=== PATIENT | male | born 1990 | race Caucasian/White ===

== ENCOUNTER 2018-12-22 23:55 | Emergency (ER) | payer OTHER ==
[~2018-12-22] VITALS: Ht 180.3 cm; Wt 65.3 kg
[2018-12-22 23:58] VITALS: BP 125/87
[2018-12-23 00:30] LABS: ABSOLUTE BASOPHILS 0.1 thou/uL (0.0-0.2); ABSOLUTE EOSINOPHILS 0.3 thou/uL (0.0-0.7); ABSOLUTE LYMPHOCYTES 3.2 thou/uL (0.8-5.3); ABSOLUTE MONOCYTES 0.5 thou/uL (0.0-1.2); BASOPHILS 0.8 %; EOSINOPHILS 3.5 %; HEMATOCRIT 48.7 % (42.0-52.0); HEMOGLOBIN 16.6 gm/dL (14.0-18.0); MCH 32.1 pg (26.0-34.0); MCV 94.2 fL (80.0-100.0); MONOCYTES 5.7 %; MPV 8.2 fl. (7.2-11.1); NUCLEATED RBCS 0 /100WBC; PLATELET COUNT* 277 thou/uL (150-400); RBC 5.17 mil/uL (4.50-6.00); RDW-CV 13.7 % (10.5-14.5); WBC 7.9 thou/uL (4.0-11.0)
[2018-12-23 00:41] LABS: ANION GAP 11 mmol/L (7-16); BUN 5 mg/dL (7-18); CALCIUM 8.8 mg/dL (8.5-10.1); CHLORIDE 106 mmol/L (98-107); CO2 27 mmol/L (21-32); CREATININE 0.9 mg/dL (0.6-1.3); GLUCOSE 96 mg/dL (70-99); POTASSIUM 4.3 mmol/L (3.5-5.1); SODIUM 144 mmol/L (136-145)
[2018-12-23 00:43] LABS: PROTIME 10.2 Seconds (9.20-11.50)
[2018-12-23 00:57] LABS: ALBUMIN 4.2 g/dL (3.4-5.0); ALKALINE PHOSPHATASE 66 U/L (46-116); LIPASE 210 U/L (73-393); NT-PRO BRAIN NAT PEPTIDE 68 pg/mL (<300); SGOT 17 U/L (15-37); SGPT 24 U/L (30-65); TOTAL BILIRUBIN 0.3 mg/dL (<0.1-1.0); TOTAL PROTEIN 7.5 g/dL (6.4-8.2); TROPONIN-I LEVEL <0.06 ng/mL (<0.06)
--- NOTE | 2018-12-23 17:00 | EKG ---
[place] [address] ELECTROCARDIOGRAM REPORT Name: MARTASamiraBAMBI Stephy Room: [facility]#: [id number] Admission: 12/22/18 Attend Phys: Discharge: 12/23/18 Date of : 86 Report #: [id number] THIS REPORT FOR: //name// [facility] ED Test Date: 2018-12-22 Test Time: 23:59:12 Pat Name: BAMBI WESTON Department: Room: Gender: M [employer]: : 1990 Requested By: Marcus Bray Order Number: [id number] MD: Camacho Humphrey Measurements Intervals Palmer Rate: 85 P: 37 SC: 155 QRS: 56 QRSD: 106 T: 35 QT: 356 QTc: 429 Interpretive Statements Sinus rhythm No previous ECG available for comparison Electronically Signed On 12-23-2018 17:00:31 CDT by Camacho Humphrey [email or web address] <ELECTRONICALLY SIGNED> By: Camacho Humphrey MD, [facility] 12/23/18 1700 [id number] [id number] Camacho Humphrey MD, FACC /EPI
== END 2018-12-23 00:36 | disposition left against medical advice (07) ==
LOC: M.ERS 23:55
PROVIDERS: Emergency Medicine
DX: R55 Syncope and collapse (principal); F17.210 Nicotine dependence, cigarettes, uncomplicated